=== PATIENT | male | born 1945 | race Caucasian/White ===

== ENCOUNTER 2016-05-05 11:24 | Emergency (ER) | payer OTHER ==
[2016-05-05] MEDS ORDERED: NITROGLYCERIN SL PRN (11:40)
[2016-05-05] MEDS ORDERED: ASPIRIN PO STA (11:40)
[2016-05-05 11:59] LABS: MANUAL DIFF NEEDED? NO
[2016-05-05 12:04] LABS: BASO% 0.7 % (0.0-0.8); EOS# 0.12 X1000 (0.0-0.7); EOS% 2.1 % (0.0-10.0); HEMATOCRIT 43.9 % (42.0-52.0); HEMOGLOBIN 15.1 g/dL (14.0-18.0); LYMPH# 1.49 X1000 (1.2-3.4); LYMPH% 25.9 % (20.5-51.1); MCH 30.2 PG (27-31); MCHC 34.4 g/dL (33-37); MCV 87.8 FL (81-99); MONO% 13.9 % (1.7-9.3); NEUT% 57.4 % (42.2-75.2); PLT 224 X1000 (130-400)
[2016-05-05 12:14] LABS: INR 1.13; PTT 33.2 Seconds (22.0-36.0)
[2016-05-05 12:51] LABS: ALBUMIN 4.2 g/dL (3.5-5.0); CALCIUM 8.9 mg/dL (8.8-10.2); MAGNESIUM 2.3 mg/dL (1.5-2.7); POTASSIUM 3.6 mmol/L (3.5-5.1); TOTAL BILIRUBIN 0.48 mg/dL (0.20-1.00); TOTAL PROTEIN 6.5 g/dL (6.3-8.3)
--- NOTE | 2016-05-05 12:54 | Diag Imaging Result Document ---
PROCEDURE NAME: CHEST-2 VIEWS - 05/05/2016 CHEST X-RAY TWO VIEWS: COMPARISON: 10/30/2012. FINDINGS: The lung volumes are slightly lower today. There is a stable calcified granuloma in the lateral right lung base. No focal infiltrates, pneumothorax, or pleural effusion. Heart size is normal. IMPRESSION: Lower lung volumes but no acute disease.
--- NOTE | 2016-05-05 13:02 | PROVIDER DOCUMENTATION ---
HPI-Respiratory General - General Chief Complaint: Shortness of Breath Stated Complaint: BLOOD CLOT/CHEST/LEG PAIN Time Seen by Provider: 05/05/16 13:00 Source: patient Allergies/Adverse Reactions: Patient Allergies Allergy/AdvReac Type Severity Reaction Status Date / Time No Known Allergies Allergy Verified 10/30/12 16:04 Home Medications: Home Medication List Medication Instructions Recorded Confirmed Last Taken Type Citalopram Hydrobromide [Celexa] 10 mg PO DAILY 10/30/12 05/05/16 05/04/16 22: 00 History Losartan/Hctz [Hyzaar 100/12.5 mg 0.5 each PO DAILY 10/30/12 05/05/16 05/04/16 22:00 History Tab] Azithromycin [Zithromax Z-Yazan] 250 mg PO DIRECTED #1 pkg 05/05/16 Unknown Rx Omeprazole 20 mg PO DAILY 05/05/16 05/05/16 05/05/16 07:00 History Rivaroxaban [Xarelto] 20 mg PO DAILY 05/05/16 05/05/16 05/04/16 22:00 History - History of Present Illness-Resp Nature of Presenting Problem: HX of prior blood clot R lweg. Reports several days of R leg pain and 2 weeks of cough and a feeling of pressure in his chest like he cannot get a full breath. On xarelto which he takes regularly Quality of Pain: reports: aching Severity in ED: reports: mild Onset/Duration: reports: 3 days ago (leg pain) Review of Systems - Adult - REVIEW OF SYSTEMS - ADULT Constitutional: reports: no symptoms reported Eyes: reports: no symptoms reported Respiratory: reports: cough, shortness of breath Gastrointestinal: reports: no symptoms reported Genitourinary: reports: no symptoms reported Musculoskeletal: reports: other (R calf and leg pain) Integumentary: reports: no symptoms reported Neurological: reports: no symptoms reported Psychiatric: reports: no symptoms reported Past History - Adult - PAST MEDICAL HISTORY-ADULT Review of Records: reports: Old Records Reviewed, Nursing Assessment Review, Medications Reviewed Major Childhood Illnesses: reports: denies history Cardiovascular: reports: blood clots, HTN Gastrointestinal: reports: GERD Musculoskeletal: reports: denies history Neurological: reports: denies history Physical Exam-General - PHYSICAL EXAM-ADULT Initial Vital Signs Reviewed: Yes - CONSTITUTIONAL General Appearance: appears well, alert, no apparent distress - EYES Eyes: PERRL/EOMI - HEAD, EARS, NOSE, MOUTH & THROAT HENMT: normocephalic/atraumatic, moist mucous membranes, normal ENT inspection, pharynx normal - NECK Neck: non-tender, full range of motion, supple - RESPIRATORY Respiratory: chest non-tender, lungs clear, normal breath sounds - CARDIOVASCULAR Cardiovascular: normal peripheral pulses, regular rate, rhythm, no edema, no gallop, no JVD, no murmur - GASTROINTESTINAL (ABDOMEN) Abdominal Exam: normal bowel sounds, non tender, soft, no organomegaly - GENITOURINARY Male Genitalia: deferred - LYMPHATIC Lymphatic: no adenopathy - MUSCULOSKELETAL Back Exam: normal inspection, no CVA tenderness, no vertebral tenderness Extremity: normal range of motion, normal inspection, no pedal edema, tenderness (complains of tenderness through out R leg- no swelling and not tendern tob palpation) - SKIN Integumentary: normal color, normal turgor, warm/dry - NEUROLOGIC Neurologic: grossly normal, no motor/sensory deficits Progress - PLAN OF CARE/RESULTS Progress/Plan/Lab Results: Laboratory Tests 05/05/16 05/05/16 05/05/16 11:47 11:47 11:47 WBC 5.75 RBC 5.00 Hgb 15.1 Hct 43.9 MCV 87.8 MCH 30.2 MCHC 34.4 RDW Std Deviation 13.3 Plt Count 224 MPV 9.0 Immature Gran % (Auto) 0.0 Neut % (Auto) 57.4 Lymph % (Auto) 25.9 [place] % (Auto) 13.9 H Eos % (Auto) 2.1 Baso % (Auto) 0.7 Immature Gran # (Auto) 0.00 Neut # (Auto) 3.30 Lymph # (Auto) 1.49 [place] # (Auto) 0.80 H Eos # (Auto) 0.12 Baso # (Auto) 0.04 PT INR PTT (Actin FS) D-Dimer 0.12 Sodium 137 Potassium 3.6 Chloride 98 Carbon Dioxide 25 Anion Gap 14 BUN 16 Creatinine 1.2 Estimated GFR/1.73 m2 60 BUN/Creatinine Ratio 13 Glucose 87 Calculated Osmolality 274 Calcium 8.9 Magnesium 2.3 Total Bilirubin 0.48 AST 16 ALT 18 Alkaline Phosphatase 85 Creatine Kinase 250 H Creatine Kinase Index 1.8 CK-MB (CK-2) 4.55 Troponin T Mxp-M-Wqoqnnmwvez Pept Total Protein 6.5 Albumin 4.2 Globulin 2.3 Albumin/Globulin Ratio 1.8 05/05/16 05/05/16 05/05/16 11:47 11:47 11:47 WBC RBC Hgb Hct MCV MCH MCHC RDW Std Deviation Plt Count MPV Immature Gran % (Auto) Neut % (Auto) Lymph % (Auto) [place] % (Auto) Eos % (Auto) Baso % (Auto) Immature Gran # (Auto) Neut # (Auto) Lymph # (Auto) [place] # (Auto) Eos # (Auto) Baso # (Auto) PT 12.0 H INR 1.13 PTT (Actin FS) 33.2 D-Dimer Sodium Potassium Chloride Carbon Dioxide Anion Gap BUN Creatinine Estimated GFR/1.73 m2 BUN/Creatinine Ratio Glucose Calculated Osmolality Calcium Magnesium Total Bilirubin AST ALT Alkaline Phosphatase Creatine Kinase Creatine Kinase Index CK-MB (CK-2) Troponin T < 0.010 Bjk-H-Gfgkmoudkwl Pept 49 Total Protein Albumin Globulin Albumin/Globulin Ratio Orders Category Date Time Status Cardiac Monitoring DIRECTED Care 05/05/16 11:40 Active CHEST-2 VIEWS [RAD] Stat Exams 05/05/16 11:40 Completed CBC WITH ELECTRONIC DIFF [HEME] Stat Lab 05/05/16 11:47 Completed CK PROFILE [SP CHEM] Stat Lab 05/05/16 11:47 Completed COMPREHENSIVE METABOLIC PANEL [CHEM] Stat Lab 05/05/16 11:47 Completed D-DIMER [CHEM] Stat Lab 05/05/16 11:47 Completed MAGNESIUM [CHEM] Stat Lab 05/05/16 11:47 Completed PRO B-NATRIURETIC PEPTIDE Stat Lab 05/05/16 11:47 Completed PROTIME WITH INR [COAG] Stat Lab 05/05/16 11:47 Completed PTT [COAG] Stat Lab 05/05/16 11:47 Completed TROPONIN T Stat Lab 05/05/16 11:47 Completed Aspirin Med 05/05/16 11:40 Discontinued 325 mg PO STAT STA Nitroglycerin Sl [Nitroglycerin] Med 05/05/16 11:40 Discontinued 0.4 mg SL Q5M PRN PRN EKG [EKG] Stat Ther 05/05/16 11:40 Draft Vital Signs Temp Pulse Resp BP Pulse Ox 05/05/16 13:35 63 26 H 136/88 97 05/05/16 12:41 57 L 21 164/85 99 05/05/16 11:38 98.0 F 61 18 176/96 100 05/05/16 11:37 61 05/05/16 11:36 64 20 176/96 100 No Known Allergies Allergy (Verified 10/30/12 16:04) Citalopram Hydrobromide [Celexa] 10 mg PO DAILY 10/30/12 Losartan/Hctz [Hyzaar 100/12.5 mg Tab] 0.5 each PO DAILY 10/30/12 Azithromycin [Zithromax Z-Yazan] 250 mg PO DIRECTED #1 pkg 05/05/16 Omeprazole 20 mg PO DAILY 05/05/16 Rivaroxaban [Xarelto] 20 mg PO DAILY 05/05/16 Laboratory 05/05/16 05/05/16 05/05/16 11:47 11:47 11:47 WBC RBC Hgb Hct MCV MCH MCHC RDW Std Deviation Plt Count MPV Immature Gran % (Auto) Neut % (Auto) Lymph % (Auto) [place] % (Auto) Eos % (Auto) Baso % (Auto) Immature Gran # (Auto) Neut # (Auto) Lymph # (Auto) [place] # (Auto) Eos # (Auto) Baso # (Auto) PT 12.0 H INR 1.13 PTT (Actin FS) 33.2 D-Dimer Sodium Potassium Chloride Carbon Dioxide Anion Gap BUN Creatinine Estimated GFR/1.73 m2 BUN/Creatinine Ratio Glucose Calculated Osmolality Calcium Magnesium Total Bilirubin AST ALT Alkaline Phosphatase Creatine Kinase Creatine Kinase Index CK-MB (CK-2) Troponin T < 0.010 Bkd-O-Onyptzrxlhl Pept 49 Total Protein Albumin Globulin Albumin/Globulin Ratio 05/05/16 05/05/16 05/05/16 11:47 11:47 11:47 WBC 5.75 RBC 5.00 Hgb 15.1 Hct 43.9 MCV 87.8 MCH 30.2 MCHC 34.4 RDW Std Deviation 13.3 Plt Count 224 MPV 9.0 Immature Gran % (Auto) 0.0 Neut % (Auto) 57.4 Lymph % (Auto) 25.9 [place] % (Auto) 13.9 H Eos % (Auto) 2.1 Baso % (Auto) 0.7 Immature Gran # (Auto) 0.00 Neut # (Auto) 3.30 Lymph # (Auto) 1.49 [place] # (Auto) 0.80 H Eos # (Auto) 0.12 Baso # (Auto) 0.04 PT INR PTT (Actin FS) D-Dimer 0.12 Sodium 137 Potassium 3.6 Chloride 98 Carbon Dioxide 25 Anion Gap 14 BUN 16 Creatinine 1.2 Estimated GFR/1.73 m2 60 BUN/Creatinine Ratio 13 Glucose 87 Calculated Osmolality 274 Calcium 8.9 Magnesium 2.3 Total Bilirubin 0.48 AST 16 ALT 18 Alkaline Phosphatase 85 Creatine Kinase 250 H Creatine Kinase Index 1.8 CK-MB (CK-2) 4.55 Troponin T Ntz-E-Ozuzdnnlyoh Pept Total Protein 6.5 Albumin 4.2 Globulin 2.3 Albumin/Globulin Ratio 1.8 - XRAY 1 XRAY Study: Chest (low lung volume but no acute process) Impression: Normal - CHANGE OF SHIFT REPORT (ED Provider) Tentative Impression of Patient: normal d dimer , on xarelto, feel DVT very unlikely Departure - Departure Time of Disposition Order: 13:20 DIAGNOSIS: Bronchitis, Leg pain, left Disposition: HOME 01 Certified Medical Emergency: Emergent Condition: Stable Additional Instructions: Continue you your current medication including Xarelto. Take zithromax as directed. Use tylenol if needed for your leg pain. no strenuous activity until improved Follow up with your regualr doctor if symptoms persist. Return to emergency department if any increasing chest pressure or shortness of breath or if increasing leg pain ED Follow Up Instructions: You have been treated by a care provider in the Emergency Department. These instructions are being provided to you so you can have an understanding of how to care for yourself upon discharge. Upon discharge from the Emergency Department, you are responsible for making arrangements for follow-up care by a physician of your choice. Take all prescribed medications as directed. Return to the Emergency Department immediately for any new or worsening symptoms. You may call the Physician Referral phone number at [phone] to obtain a list of Physicians who are taking new patients. Prescriptions: Azithromycin [Zithromax Z-Yazan] 250 mg PO DIRECTED #1 pkg Referrals: Grace Villarreal MD [Primary Care Provider] - Instructions: Acute Bronchitis, [id number], Leg Cramps
[2016-05-05 13:07] LABS: CK INDEX 1.8 (0.0-2.5); CK-MB 4.55 ng/mL (0.0-5.0)
[2016-05-05 13:36] VITALS: BP 136/88
--- NOTE | 2016-05-05 14:36 | EKG Report ---
Test Performed on : 05/05/2016 11:36:58 AM Test Reason : Chest Pain Blood Pressure : / mmHG Vent. Rate : 063 BPM Atrial Rate : 063 BPM P-R Int : 164 ms QRS Dur : 096 ms QT Int : 420 ms P-R-T Axes : 051 008 038 degrees QTc Int : 429 ms Normal sinus rhythm. Normal ECG When compared with ECG of 30-OCT-2012 18:29, No significant change was found Unconfirmed Result
== END 2016-05-05 14:15 | disposition home or self-care (01) ==
LOC: ED 11:24
DX: J40 Bronchitis, not specified as acute or chronic (principal); M79.604 Pain in right leg; R06.02 Shortness of breath; R05 Cough; R07.89 Other chest pain; I10 Essential (primary) hypertension; K21.9 Gastro-esophageal reflux disease without esophagitis; Z79.01 Long term (current) use of anticoagulants; Z79.899 Other long term (current) drug therapy; Z86.718 Personal history of other venous thrombosis and embolism
CPT/HCPCS: 71020; 80053; 82550; 82553; 83735; 83880; 84484; 85025; 85379; 85610; 85730; 93005